=== PATIENT | male | born 2000 | race Caucasian/White ===

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

== ENCOUNTER 2021-05-02 16:25 | Emergency (ER) | payer OTHER ==
[~2021-05-02] VITALS: Ht 180.3 cm; Wt 68.0 kg
[~2021-05-02 16:25] MED LIST changes: +IBUP600 PO
[2021-05-02] MEDS ORDERED: Percocet 5-3251 EACH PO (21:06)
== END 2021-05-02 21:39 | disposition home or self-care (01) ==
LOC: ER 16:25
DX: S52.021A Displaced fracture of olecranon process without intraarticular extension of right ulna, initial encounter for closed fracture (principal); Z88.8 Allergy status to other drugs, medicaments and biological substances; V00.131A Fall from skateboard, initial encounter
CPT/HCPCS: 24675; 36415; 73070; 73080; 76000; 96374-59; 99152; 99283-25; A9270; J2060; J2704; J3010; J7030

== ENCOUNTER → 2022-01-14 | Outpatient (CLI) | payer OTHER ==
[~2022-01-14] MED LIST changes: +Percocet 5-3251 EACH PO
== END | disposition home or self-care (01) ==
LOC: LAB SHORT 17:36
DX: R21 Rash and other nonspecific skin eruption (principal)
CPT/HCPCS: 87081